=== PATIENT | male | born 1965 | race Hispanic/Latino ===

== ENCOUNTER 2018-12-17 11:14 | Emergency (ER) | payer SELFPAY ==
[2018-12-17 11:22] VITALS: BP 150/85
--- NOTE | 2018-12-17 11:23 | Event Note ---
ED Screening Note Date of service: 12/17/18 Time: 11:20 ED Screening Note: This is a 53 y.o. M. that presents to the ER with right flank pain x 1 week. Denies N/V/D. This initial assessment/diagnostic orders/clinical plan/treatment(s) is/are subject to change based on patients health status, clinical progression and re- assessment by fellow clinical providers in the ED. Further treatment and workup at subsequent clinical providers discretion. Patient/guardian urged not to elope from the ED as their condition may be serious if not clinically assessed and managed. Initial orders include: Labs
[2018-12-17 11:50] LABS: Basophils % (Auto) 0.4 % (0.0-1.8); Eosinophils # (Auto) 0.1 K/mm3 (0.0-0.4); Eosinophils % (Auto) 1.7 % (0.0-4.3); Hemoglobin 14.4 gm/dl (11.8-15.2); Lymphocytes # (Auto) 1.4 K/mm3 (1.2-5.4); Lymphocytes % (Auto) 35.4 % (13.4-35.0); Mean Corpuscular HGB Conc 35 % (32-34); Mean Corpuscular Volume 92 fl (84-94); Monocytes # (Auto) 0.4 K/mm3 (0.0-0.8); Monocytes % (Auto) 9.5 % (0.0-7.3); Platelet Count 139 K/mm3 (140-440); Red Blood Count 4.45 M/mm3 (3.65-5.03); Red Cell Distribution Width 12.7 % (13.2-15.2)
[2018-12-17 12:13] LABS: Albumin 4.4 g/dL (3.9-5); Calcium 8.8 mg/dL (8.4-10.2)
[2018-12-17] MEDS ORDERED: IBUPROFEN PO ONE (13:00)
[2018-12-17 14:27] LABS: Bilirubin,Urine NEG (Negative); Blood,Urine SM (Negative); Color,Urine Yellow (Yellow); Protein,Urine <15 mg/dL mg/dL (Negative); Urobilinogen,Urine < 2.0 mg/dL (<2.0); WBC,Urine < 1.0 /HPF (0.0-6.0)
--- NOTE | 2018-12-17 14:38 | Ultrasound Report ---
ULTRASOUND ABDOMEN LIMITED INDICATION: RUQ pain. COMPARISON: None similar at this institution. FINDINGS: Right upper quadrant ultrasound suggests slight diffuse nonspecific hepatic coarsening without definite focal suspicious lesions or biliary dilatation, to the extent assessed. Contracted gallbladder with exaggerated wall thickness of 4.9 mm. Patient ate breakfast this morning. Negative sonographic Paulino's sign. No pericholecystic fluid or definite shadowing gallstones. CBD caliber is 3 mm. Grossly normal imaged pancreas, aorta and IVC. Top normal renal cortical echogenicity. No hydronephrosis. Right kidney estimated at 8.9 x 3.7 x 4.5 cm with cortical thickness 1.3 cm. CONCLUSION: No acute right upper quadrant sonographic abnormality in this patient with contracted gallbladder/exaggerated wall thickness and few other incidental findings, as described. Please correlate. Thank you for the opportunity to participate in this patient's care.
--- NOTE | 2018-12-17 14:51 | Emergency Department Report ---
ED General Adult HPI - General Chief complaint: Abdominal Pain Stated complaint: BODY PAIN Time Seen by Provider: 12/17/18 11:20 Source: patient Mode of arrival: Ambulatory Limitations: No Limitations - History of Present Illness Initial comments: Patient is a 53-year-old gentleman who is presenting with right sided upper abdominal pain. Patient states is been worse for the last 2 days. He states he's had some mild nausea and vomited twice. Patient states pain is worse with movement. Pain is 10 out of 10 and is worse. Patient states pain does not change with food or drink. He denies any fevers chills diarrhea at this time. Severity scale (0 -10): 0 - Related Data Previous Rx's Medication Instructions Recorded Last Taken Type Ibuprofen [Motrin 600 MG tab] 600 mg PO Q8H PRN #20 tablet 12/17/18 Unknown Rx Ondansetron [Zofran Odt] 4 mg PO Q8HR #10 tab.rapdis 12/17/18 Unknown Rx methOCARBAMOL [Robaxin TAB] 500 mg PO Q6H PRN #14 tablet 12/17/18 Unknown Rx Allergies Allergy/AdvReac Type Severity Reaction Status Date / Time No Known Allergies Allergy Unverified 12/17/18 11:17 ED Review of Systems ROS: Stated complaint: BODY PAIN Other details as noted in HPI Comment: All other systems reviewed and negative ED Past Medical Hx - Past Medical History Previous Medical History?: No - Surgical History Past Surgical History?: No - Social History Smoking Status: Never Smoker - Medications Home Medications: Home Medications Medication Instructions Recorded Confirmed Last Taken Type Ibuprofen [Motrin 600 MG tab] 600 mg PO Q8H PRN #20 tablet 12/17/18 Unknown Rx Ondansetron [Zofran Odt] 4 mg PO Q8HR #10 tab.rapdis 12/17/18 Unknown Rx methOCARBAMOL [Robaxin TAB] 500 mg PO Q6H PRN #14 tablet 12/17/18 Unknown Rx ED Physical Exam - General Limitations: No Limitations General appearance: alert, in no apparent distress - Head Head exam: Present: atraumatic, normocephalic - Eye Eye exam: Present: normal appearance, PERRL, EOMI - ENT ENT exam: Present: mucous membranes moist - Neck Neck exam: Present: normal inspection - Respiratory Respiratory exam: Present: normal lung sounds bilaterally. Absent: respiratory distress, wheezes, rales, rhonchi - Cardiovascular Cardiovascular Exam: Present: regular rate, normal rhythm, normal heart sounds. Absent: systolic murmur, diastolic murmur, rubs, gallop - GI/Abdominal GI/Abdominal exam: Present: soft, tenderness, normal bowel sounds. Absent: distended, guarding, rebound, rigid - Rectal Rectal exam: Present: deferred - Extremities Exam Extremities exam: Present: normal inspection - Back Exam Back exam: Present: normal inspection - Neurological Exam Neurological exam: Present: alert, oriented X3 - Psychiatric Psychiatric exam: Present: normal affect, normal mood - Skin Skin exam: Present: warm, dry, intact, normal color. Absent: rash ED Course Vital Signs 12/17/18 11:21 Temperature 98 F Pulse Rate 78 Respiratory 98 H Rate Blood Pressure 150/85 ED Medical Decision Making - Lab Data Result diagrams: 12/17/18 11:32 12/17/18 11:32 Lab Results 12/17/18 12/17/18 12/17/18 Range/Units 11:32 11:32 14:09 WBC 4.0 L (4.5-11.0) K/mm3 RBC 4.45 (3.65-5.03) M/mm3 Hgb 14.4 (11.8-15.2) gm/dl Hct 41.0 (35.5-45.6) % MCV 92 (84-94) fl MCH 32 (28-32) pg MCHC 35 H (32-34) % RDW 12.7 L (13.2-15.2) % Plt Count 139 L (140-440) K/mm3 Lymph % (Auto) 35.4 H (13.4-35.0) % Bates % (Auto) 9.5 H (0.0-7.3) % Eos % (Auto) 1.7 (0.0-4.3) % Baso % (Auto) 0.4 (0.0-1.8) % Lymph # 1.4 (1.2-5.4) K/mm3 Bates # 0.4 (0.0-0.8) K/mm3 Eos # 0.1 (0.0-0.4) K/mm3 Baso # 0.0 (0.0-0.1) K/mm3 Seg Neutrophils % 53.0 (40.0-70.0) % Seg Neutrophils # 2.1 (1.8-7.7) K/mm3 Sodium 137 (137-145) mmol/L Potassium 4.1 (3.6-5.0) mmol/L Chloride 98.4 (98-107) mmol/L Carbon Dioxide 28 (22-30) mmol/L Anion Gap 15 mmol/L BUN 16 (9-20) mg/dL Creatinine 1.4 (0.8-1.5) mg/dL Estimated GFR 53 ml/min BUN/Creatinine Ratio 11 % Glucose 131 H (75-100) mg/dL Calcium 8.8 (8.4-10.2) mg/dL Total Bilirubin 0.50 (0.1-1.2) mg/dL AST 21 (5-40) units/L ALT 21 (7-56) units/L Alkaline Phosphatase 66 (35-129) units/L Total Protein 6.9 (6.3-8.2) g/dL Albumin 4.4 (3.9-5) g/dL Albumin/Globulin Ratio 1.8 % Lipase 34 (13-60) units/L Urine Color Yellow (Yellow) Urine Turbidity Clear (Clear) Urine pH 5.0 (5.0-7.0) Ur Specific [place]il 1.012 (1.003-1.030) Urine Protein <15 mg/dl (Negative) mg/dL Urine Glucose (UA) Neg (Negative) mg/dL Urine Ketones Neg (Negative) mg/dL Urine Blood Sm (Negative) Urine Nitrite Neg (Negative) Urine Bilirubin Neg (Negative) Urine Urobilinogen < 2.0 (<2.0) mg/dL Ur Leukocyte Esterase Neg (Negative) Urine WBC (Auto) < 1.0 (0.0-6.0) /HPF Urine RBC (Auto) 4.0 (0.0-6.0) /HPF U Epithel Cells (Auto) < 1.0 (0-13.0) /HPF - Radiology Data [facility] [address] [place] [address] Ultrasound Report Signed Patient: BRENDA RANKIN MR#: [id number] : 1965 Acct:[id number] Age/Sex: 53 / M ADM Date: 12/17/18 Loc: ED Attending Dr: Ordering Physician: RUBÉN MADRID MD Date of Service: 12/17/18 Procedure(s): US abdomen limited Accession Number(s): [id number] cc: RUBÉN MADRID MD ULTRASOUND ABDOMEN LIMITED INDICATION: RUQ pain. COMPARISON: None similar at this institution. FINDINGS: Right upper quadrant ultrasound suggests slight diffuse nonspecific hepatic coarsening without definite focal suspicious lesions or biliary dilatation, to the extent assessed. Contracted gallbladder with exaggerated wall thickness of 4.9 mm. Patient ate breakfast this morning. Negative sonographic Paulino's sign. No pericholecystic fluid or definite shadowing gallstones. CBD caliber is 3 mm. Grossly normal imaged pancreas, aorta and IVC. Top normal renal cortical echogenicity. No hydronephrosis. Right kidney estimated at 8.9 x 3.7 x 4.5 cm with cortical thickness 1.3 cm. CONCLUSION: No acute right upper quadrant sonographic abnormality in this patient with contracted gallbladder/exaggerated wall thickness and few other incidental findings, as described. Please correlate. Thank you for the opportunity to participate in this patient's care. Transcribed By: RS Dictated By: JOANIE HURTADO MD Electronically Authenticated By: JOANIE HURTADO MD Signed Date/Time: 12/17/181436 DD/ 32 TD/TT: 12/17/181436 - Medical Decision Making Patient is a 53-year-old gentleman who is presenting with some right sided upper abdominal as well as flank pain. Ultrasound shows no acute abdomen. Patient's pain is worse with movement and is likely musculoskeletal. Patient's laboratory studies are unremarkable. Patient was started on medications for pain control and be discharged home Critical care attestation.: If time is entered above; I have spent that time in minutes in the direct care of this critically ill patient, excluding procedure time. ED Disposition Clinical Impression: Muscular abdominal pain in right flank Disposition: DC-01 TO HOME OR SELFCARE Is pt being admited?: No Does the pt Need Aspirin: No Condition: Stable Instructions: Musculoskeletal Pain (ED) Referrals: CADY GARRISON MD [Primary Care Provider] - 3-5 Days Time of Disposition: 14:51
== END 2018-12-17 15:11 | disposition home or self-care (01) ==
LOC: ED 11:14
DX: R10.11 Right upper quadrant pain (principal)
CPT/HCPCS: 36415; 76705; 80053; 81001; 83690; 85025